=== PATIENT | male | born 1990 | race American Indian/Alaskan Native ===

== ENCOUNTER 2018-02-17 10:48 | Emergency (ER) | payer SELFPAY ==
[2018-02-17] MEDS ORDERED: MOTRIN PO ONE (11:52)
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
--- NOTE | 2018-02-17 12:00 | XRay Report ---
LEFT FOREARM: History: Trauma, pain, edema AP and lateral views of the forearm demonstrate normal mineralization and contours for this patient's age. No destructive changes are noted and the adjacent soft tissues are normal. IMPRESSION: Normal left forearm.
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
[2018-02-17] MEDS ORDERED: BOOSTRIX IM ONE ×2 (12:13→15:10)
--- NOTE | 2018-02-17 12:53 | Cat Scan Report ---
CT HEAD WITHOUT CONTRAST: HISTORY: Headache, injury. TECHNIQUE: Sequential 2.5mm CT images. COMPARISON: none. FINDINGS: Cerebral Parenchyma: Within normal limits. Cerebellum: Within normal limits. Brainstem: Within normal limits. Ventricles: Normal. Sella: Normal. Extra-axial spaces: Normal. Basal Cisterns: Normal. Intracranial Hemorrhage: None. Midline Shift: None. Calvarium: Normal. Sinuses: Normal. Mastoid Air Cells: Normal. Visualized Orbits: Normal. IMPRESSION: Cranial CT scan within normal limits.
--- NOTE | 2018-02-17 12:55 | Cat Scan Report ---
CT FACIAL BONES WITHOUT CONTRAST: HISTORY: Facial pain, injury. TECHNIQUE: Helical CT images with sagittal and coronal CT reformations. FINDINGS: All paranasal sinuses are clear. No sinus wall fracture, fluid level or opacification. The orbital cavities are symmetric and intact. The mandible is intact. The skull base and upper cervical spine demonstrate no evidence for acute injury. A periapical tooth abscess is identified involving a left maxillary incisor. IMPRESSION: No evidence for acute facial fracture. Left maxillary incisor periapical tooth abscess.
--- NOTE | 2018-02-17 13:55 | XRay Report ---
LEFT HAND, 3 views: History: Left hand pain. The bony architecture is intact. Bony alignment is normal. No soft tissue abnormalities are seen. The joint spaces appear preserved. IMPRESSION: Unremarkable left hand.
--- NOTE | 2018-02-17 15:59 | XRay Report ---
FINAL REPORT EXAM: XR WRIST 3+V LT HISTORY: hand/wrist pain TECHNIQUE: 3 views of the left wrist PRIORS: None. FINDINGS: There is no radiographic evidence of definite acute fracture or dislocation. No evidence of osseous lesion. Joint spaces are maintained. There is no evidence of significant degenerative arthrosis. IMPRESSION: No acute skeletal pathology
[2018-02-17 16:24] VITALS: BP 153/95
== END 2018-02-17 16:23 | disposition home or self-care (01) ==
LOC: ED 10:48
DX: S66.912A Strain of unspecified muscle, fascia and tendon at wrist and hand level, left hand, initial encounter (principal); K04.7 Periapical abscess without sinus; S50.312A Abrasion of left elbow, initial encounter; R51 Headache; F17.200 Nicotine dependence, unspecified, uncomplicated; F12.10 Cannabis abuse, uncomplicated; Y08.89XA Assault by other specified means, initial encounter; Y93.89 Activity, other specified; Y92.89 Other specified places as the place of occurrence of the external cause; Y99.8 Other external cause status
CPT/HCPCS: 70450; 70486; 90471; 90715; 99284

== ENCOUNTER 2019-05-08 01:19 | Emergency (ER) | payer SELFPAY ==
[2019-05-08] MEDS ORDERED: TORADOL IM ONE (02:56)
[2019-05-08] MEDS ORDERED: BANOPHEN PO ONE (02:56)
[2019-05-08] MEDS ORDERED: ZOFRAN ODT PO ONE (02:56)
[2019-05-08] MEDS ORDERED: FIORICET PO ONE (02:56)
--- NOTE | 2019-05-08 04:04 | Emergency Department Report ---
ED General Adult HPI - General Chief complaint: Headache Stated complaint: HEADACHE AND SORE THROAT Time Seen by Provider: 05/08/19 02:45 Source: patient, EMS Mode of arrival: Ambulatory Limitations: No Limitations - History of Present Illness Initial comments: Patient is a 28-year-old -Beninese male with no past medical history presents to the ED, and the acute onset persistent severe diffuse headache with photophobia for the last 6 hours. Patient denies neck pain, change in vision, nausea, vomiting, dizziness, lightheadedness, chest pain, shortness of breath, nasal and sinus congestion, sore throat, abdominal pain, numbness and tingling in upper and lower extremities bilaterally, traumatic injury, fever or chills. MD Complaint: headache -: Sudden, hour(s) (6), This evening Location: head Radiation: non-radiation Severity scale (0 -10): 5 Quality: aching, sharp, constant Consistency: constant Improves with: none Worsens with: none Associated Symptoms: denies other symptoms, headaches. denies: confusion, chest pain, cough, diaphoresis, fever/chills, loss of appetite, malaise, [place] sea/vomiting, rash, seizure, shortness of breath, syncope, weakness Treatments Prior to Arrival: none - Related Data Previous Rx's Medication Instructions Recorded Last Taken Type Acetaminophen/Codeine [Tylenol 1 tab PO Q6H PRN #12 tab 02/17/18 Unknown Rx /Codeine # 3 tab] Amoxicillin/K Clav Tab [Augmentin 1 tab PO Q12HR #20 tab 02/17/18 Unknown Rx 875 mg] Ibuprofen [Motrin] 600 mg PO Q8H PRN #30 tablet 02/17/18 Unknown Rx Butalb/Acetamin/Caff 50-325-40 1 each PO Q4H PRN #15 tablet 05/08/19 Unknown Rx [Fioricet 50-325-40] Ketorolac [Toradol] 10 mg PO Q8H PRN #20 tablet 05/08/19 Unknown Rx Promethazine [Phenergan] 25 mg PO Q6HR PRN #20 tab 05/08/19 Unknown Rx Allergies Allergy/AdvReac Type Severity Reaction Status Date / Time No Known Allergies Allergy Verified 05/08/19 01:37 ED Review of Systems ROS: Stated complaint: HEADACHE AND SORE THROAT Other details as noted in HPI Constitutional: denies: chills, fever Eyes: denies: eye pain, eye discharge, vision change ENT: denies: ear pain, throat pain Respiratory: denies: cough, shortness of breath, wheezing Cardiovascular: denies: chest pain, palpitations Endocrine: no symptoms reported Gastrointestinal: denies: abdominal pain, nausea, diarrhea Genitourinary: denies: urgency, dysuria Musculoskeletal: denies: back pain, joint swelling, arthralgia Skin: denies: rash, lesions Neurological: headache. denies: weakness, paresthesias Psychiatric: denies: anxiety, depression Hematological/Lymphatic: denies: easy bleeding, easy bruising ED Past Medical Hx - Past Medical History Previous Medical History?: No - Surgical History Past Surgical History?: No - Social History Smoking Status: Current Some Day Smoker Substance Use Type: Alcohol - Medications Home Medications: Home Medications Medication Instructions Recorded Confirmed Last Taken Type Acetaminophen/Codeine [Tylenol 1 tab PO Q6H PRN #12 tab 02/17/18 Unknown Rx /Codeine # 3 tab] Amoxicillin/K Clav Tab [Augmentin 1 tab PO Q12HR #20 tab 02/17/18 Unknown Rx 875 mg] Ibuprofen [Motrin] 600 mg PO Q8H PRN #30 tablet 02/17/18 Unknown Rx Butalb/Acetamin/Caff 50-325-40 1 each PO Q4H PRN #15 tablet 05/08/19 Unknown Rx [Fioricet 50-325-40] Ketorolac [Toradol] 10 mg PO Q8H PRN #20 tablet 05/08/19 Unknown Rx Promethazine [Phenergan] 25 mg PO Q6HR PRN #20 tab 05/08/19 Unknown Rx ED Physical Exam - General Limitations: No Limitations General appearance: alert, in no apparent distress - Head Head exam: Present: atraumatic, normocephalic, normal inspection - Eye Eye exam: Present: normal appearance, PERRL, EOMI. Absent: scleral icterus, conjunctival injection, nystagmus, periorbital swelling, periorbital tenderness Pupils: Present: normal accommodation - ENT ENT exam: Present: normal exam, normal orophraynx, mucous membranes moist, TM's normal bilaterally, normal external ear exam - Neck Neck exam: Present: normal inspection, full ROM. Absent: tenderness, meningismus, lymphadenopathy, thyromegaly - Respiratory Respiratory exam: Present: normal lung sounds bilaterally. Absent: respiratory distress, wheezes, rales, rhonchi, chest wall tenderness, accessory muscle use, decreased breath sounds - Cardiovascular Cardiovascular Exam: Present: regular rate, normal rhythm, normal heart sounds. Absent: systolic murmur, diastolic murmur, rubs, gallop - GI/Abdominal GI/Abdominal exam: Present: soft, normal bowel sounds. Absent: distended, tenderness, guarding, rebound, hyperactive bowel sounds, hypoactive bowel sounds, organomegaly, mass, pulsatile mass - Rectal Rectal exam: Present: deferred - Extremities Exam Extremities exam: Present: normal inspection, full ROM, normal capillary refill - Back Exam Back exam: Present: normal inspection, full ROM. Absent: tenderness, CVA tenderness (L), muscle spasm, paraspinal tenderness, vertebral tenderness - Neurological Exam Neurological exam: Present: alert, oriented X3, CN II-XII intact, normal gait, reflexes normal - Psychiatric Psychiatric exam: Present: normal affect, normal mood - Skin Skin exam: Present: warm, dry, intact, normal color. Absent: rash ED Course Vital Signs 05/08/19 01:24 Temperature 98.8 F Pulse Rate 76 Respiratory 18 Rate Blood Pressure 116/83 O2 Sat by Pulse 99 Oximetry - Reevaluation(s) Reevaluation #1: 05/08/19 04:05 Patient is alert and oriented 3 and is not in distress. The vital signs are stable, and patient has no neurological symptoms. Patient was treated in the ED empirically for a tension headache and on reevaluation, the headache has significantly improved with medications for pain. Patient was sent home on medications and advised to follow-up with his primary care physician in 7-10 days for reevaluation. Patient was also advised to return to the ED immediately if symptoms get worse. ED Medical Decision Making - Medical Decision Making Patient is alert and oriented 3 and is not in distress. The vital signs are stable, and patient has no neurological symptoms. Patient was treated in the ED empirically for a tension headache and on reevaluation, the headache has significantly improved with medications for pain. Patient was sent home on medications and advised to follow-up with his primary care physician in 7-10 days for reevaluation. Patient was also advised to return to the ED immediately if symptoms get worse. - Differential Diagnosis [place] type headache; Cluster headache Critical care attestation.: If time is entered above; I have spent that time in minutes in the direct care of this critically ill patient, excluding procedure time. ED Disposition Clinical Impression: Tension-type headache Qualifiers: Headache chronicity pattern: unspecified pattern Intractability: not intractable Qualified Code(s): G44.209 - Tension-type headache, unspecified, not intractable Disposition: DC-01 TO HOME OR SELFCARE Is pt being admited?: No Does the pt Need Aspirin: No Condition: Stable Instructions: Tension Headache (ED), Acute Headache (ED) Additional Instructions: Take medications with food, drink plenty of fluids and follow-up with your primary care physician in 7-10 days for reevaluation. Return to the ED immediately if symptoms get worse. Prescriptions: Butalb/Acetamin/Caff 50-325-40 [Fioricet 50-325-40] 1 each PO Q4H PRN #15 tablet PRN Reason: Headache Promethazine [Phenergan] 25 mg PO Q6HR PRN #20 tab PRN Reason: Nausea Ketorolac [Toradol] 10 mg PO Q8H PRN #20 tablet PRN Reason: Pain Referrals: MANOHAR RAMOS MD [Primary Care Provider] - 3-5 Days [facility] [Outside] - 3-5 Days Time of Disposition: 04:02 Print Language: UZBEK
[2019-05-08 04:38] VITALS: BP 119/82
== END 2019-05-08 04:20 | disposition home or self-care (01) ==
LOC: ED 01:19
DX: G44.209 Tension-type headache, unspecified, not intractable (principal); F17.200 Nicotine dependence, unspecified, uncomplicated
CPT/HCPCS: 99283; Q0162; Q0163